=== PATIENT | female | born 1995 | race Caucasian/White ===

== ENCOUNTER 2022-03-22 12:53 | Emergency (ER) | payer BC, SELFPAY ==
[2022-03-22 13:07] VITALS: BP 121/77; PULSE 95; RESP 18; TEMP 37.3; O2SAT 98
--- NOTE | 2022-03-22 13:21 | ED.EAR ---
HPI - Ear Problem General Chief complaint: Ear Stated complaint: lt ear pain Time Seen by Provider: 03/22/22 13:15 Source: patient Mode of arrival: ambulatory Limitations: no limitations History of Present Illness HPI Narrative: Lala is a 27-year-old female patient presenting to the clinic today with complaints of left ear pain x2 days. She denies any fever or chills. She denies any known exposure to anybody with COVID, flu, or strep. She says she gets outer ear infections pretty frequently. Related Data Home Medications Medication Instructions Recorded Confirmed cholecalciferol (vitamin D3) 25 1,000 unit PO DAILY 09/12/19 03/22/22 mcg (1,000 unit) capsule (Vitamin D3) levothyroxine 25 mcg tablet 25 mcg PO DAILY 09/12/19 03/22/22 baclofen 20 mg tablet 40 tablet DAILY 03/22/22 03/22/22 duloxetine 20 mg capsule,delayed 40 cap PO DAILY 03/22/22 03/22/22 release gabapentin 100 mg capsule 100 cap DAILY 03/22/22 03/22/22 hydrochlorothiazide 12.5 mg capsule 12.5 cap DAILY 03/22/22 03/22/22 meclizine 25 mg tablet 25 tablet DIRECTED 03/22/22 03/22/22 metformin 500 mg tablet 500 tablet DAILY 03/22/22 03/22/22 metoprolol tartrate 50 mg tablet 100 tablet DAILY 03/22/22 03/22/22 nabumetone 750 mg tablet 750 tablet BID 03/22/22 03/22/22 norgestrel 0.3 mg-ethinyl 1 tablet DAILY 03/22/22 03/22/22 estradiol 30 mcg tablet (Low-Ogestrel (28)) topiramate 50 mg tablet 50 tablet BID 03/22/22 03/22/22 Allergies Allergy/AdvReac Type Severity Reaction Status Date / Time cefaclor Allergy Mild hives Verified 03/22/22 13:14 Review of Systems Review of Systems: Pertinent positives per HPI. Patient denies any fever, chills, rash, headache, visual changes, dizziness, cough, runny nose, sore throat, shortness of breath, chest pain, palpitations, nausea, vomiting, diarrhea, constipation, abdominal pain, or any urinary issues. PMFSH Comments At the time of my signature, I reviewed and agree with the nursing past medical, surgical, social, and family history. There is no relevant family history pertinent to the patient complaint. Exam Narrative: General: Well-developed, morbidly obese, in no apparent distress Head: Normocephalic, atraumatic Eyes: Pupils equally round and reactive to light bilaterally, EOM intact, sclera and conjunctive clear, no discharge, lids normal Ears: Right TMs intact and clear, right ear canals clear, no drainage, left ear canal swollen, red, with yellow exudate, grossly hearing normal. Tender to palpation over the left tragus and pulling of the left pinna Nose: Nares patent, clear nasal discharge, no inflammation, no sinus tenderness. Mouth: Oropharynx without lesions or masses, good dentition, MMM. Neck: Supple, trachea midline, no enlargement of anterior or posterior cervical nodes, no thyroid masses or goiter palpable. Cardio: Regular rate and rhythm, s1 and s2 normal, no murmur appreciated. Resp: Clear to auscultation bilaterally anteriorly and posteriorly, no rhonchi, rales, wheezing or rubs Course Course Emergency Course: Portions of this record may have been created with voice recognition software. Level of Care: Express Care Visit Vital Signs Vital signs: Vital Signs Temperature 37.3 C 03/22/22 13:07 Pulse Rate 95 03/22/22 13:07 Respiratory Rate 18 03/22/22 13:07 Blood Pressure 121/77 03/22/22 13:07 Pulse Oximetry 98 03/22/22 13:07 Oxygen Delivery Room Air 03/22/22 13:07 Temperature 37.3 C 03/22/22 13:07 Pulse Rate 95 03/22/22 13:07 Respiratory Rate 18 03/22/22 13:07 Blood Pressure 121/77 03/22/22 13:07 Pulse Oximetry 98 03/22/22 13:07 Oxygen Delivery Room Air 03/22/22 13:07 Vital signs reviewed Medical Decision Making MDM Narrative Medical decision making narrative: At the time of visit patient is resting comfortably on the exam table. She has otitis externa to the left ear. Prescription for ofloxacin eardrops was given and se
== END 2022-03-22 13:26 | disposition home or self-care (01) ==
PROVIDERS: Emergency Provider Nurse Practitioner Family; PCP Nurse Practitioner
DX: H60.91 Unspecified otitis externa, right ear (principal); E03.9 Hypothyroidism, unspecified
CPT/HCPCS: 99213; G0463

== ENCOUNTER 2023-07-30 12:51 | Outpatient (CLI) | payer OTHER, SELFPAY ==
--- NOTE | 2023-07-30 13:05 | ECG_ITS ---
Measurements Intervals [place] Rate: 87 P: 3 NC: 140 QRS: 3 QRSD: 99 T: 16 QT: 371 QTc: 448 Interpretive Statements SINUS RHYTHM NORMAL ECG NO PREVIOUS ECG AVAILABLE FOR COMPARISON Electronically Signed On 07-30-2023 18:33:53 CDT by Hugo Montoya M.D.
[2023-07-30 13:23] LABS: Basophils Absolute Auto 0.1 K/mm3 (0.0-0.1); Eosinophils Absolute Auto 0.3 K/mm3 (0-0.3); Eosinophils Percent Auto 4.6 % (0-4.4); Hematocrit 43.7 % (37.0-47.0); Hemoglobin 14.1 g/dL (12.0-15.0); Immature Granulocyte Absolute 0.02 K/mm3 (0.00-0.031); Immature Granulocyte Percent A 0.3 % (0-0.5); Lymphocytes Absolute Auto 1.71 K/mm3 (0.9-3.2); Mean Corpuscular HGB Conc 32.3 g/dl (32-36); Mean Corpuscular Hemoglobin 29.6 pg (26-34); Mean Corpuscular Volume 91.6 fl (80-100); Mean Platelet Volume 10.6 fl (7.4-10.4); Monocytes Absolute Auto 0.4 K/mm3 (0.1-0.6); Monocytes Percent Auto 6.9 % (2.6-8.5); Neutrophils Absolute Auto 3.6 K/mm3 (1.3-6.7); Neutrophils Percent Auto 59.2 % (45.5-73.1); Platelet Count Result 301 k/mm3 (150-375); Red Blood Count 4.77 M/mm3 (4.2-5.4); Red Cell Distribution Width 13.9 % (11.5-14.5); White Blood Count 6.1 K/mm3 (4.5-10.0)
[2023-07-30 13:34] LABS: Anion Gap 6 mmol/L (8-16); Blood Urea Nitrogen 11 mg/dL (7-17); Calcium 8.5 mg/dL (8.4-10.2); Carbon Dioxide 24 mmol/L (22-30); Chloride 107 mmol/L (98-107); Estimated Glomerular Filt Rate > 60; Glucose 139 mg/dL (65-110); Potassium 3.4 mmol/L (3.4-5.0); Sodium 137 mmol/L (137-145)
== END 2023-07-30 12:52 | disposition home or self-care (01) ==
LOC: ANHSURGERY 12:57
PROVIDERS: Anesthesiology; PCP Nurse Practitioner; Visit Provider Obstetrics & Gynecology
DX: Z01.818 Encounter for other preprocedural examination (principal); R10.2 Pelvic and perineal pain; R73.03 Prediabetes; R00.0 Tachycardia, unspecified; Z79.899 Other long term (current) drug therapy
CPT/HCPCS: 36415; 80048; 85025; 86850; 86900; 86901; 93005

== ENCOUNTER 2023-08-08 00:21 | Day surgery (SDC) | payer OTHER, SELFPAY ==
[2023-07-29 14:33] VITALS: BMI 48.6
--- NOTE | 2023-07-29 14:52 | PC.NURSE ---
Report to the Outpatient Waiting Room, entrance under the green pavilion located off [facility], at time 7:30 on date 08/08/23. Planned Procedure Time: 9:30. Time changes happen often and if your time is changed the preop area will call you the afternoon before. - You and your visitor will be asked to self-screen and do not enter if you have any COVID symptoms. - A mask is optional within the hospital at this time. Patients may have clear liquids (water, carbonated beverages, clear teas, apple juice) until 3 hours prior to surgery (6:30) with a maximum of 20 ounces. - No food from midnight until time of surgery Take the following medications with a SIP of water the morning of surgery: BACLOFEN, DULOXETINE, GABAPENTIN, LEVOTHYROXINE, METOPROLOL, TOPIRAMATE, TRAMADOL IF NEEDED DO NOT STOP ANY OF YOUR OTHER PRESCRIPTION MEDICATIONS PRIOR TO SURGERY ?EXCEPT THE FOLLOWING Medications to discontinue per physician: VITAMINS Date to take last dose: 08/04/23 Please no make-up, nail mongolian, hairspray, perfume, deodorant, or body powder the day of surgery. No jewelry (including any body piercings) or valuables the day of surgery, leave them at home. Please take a shower or bath the night before, or the morning of, surgery with an antibacterial soap. Wear comfortable, loose fitting clothing. - Jewelry must be removed prior to entering the operating room. Rings and piercings that are not removed may be cut off. - The hospital will not accept responsibility for valuables. - Please leave all valuables, including medications, at home the day of surgery. If you are going home after surgery, a licensed transport driver must drive you home. - NO public transportation without another adult if you receive anesthesia. - We recommend that an adult stay with you for 24 hours following discharge. - We also recommend that you do not drive, make important decision, drink alcoholic beverages, or take any drugs that were not prescribed by your health care provider for at least 24 hours after your discharge time. Follow any additional instructions given to you from your surgeon. If you or anyone in your household have experienced Covid symptoms in the past week, please notify your surgeon or the nurse liaison at the phone number below for possible testing. Telephone instructions given to PT - WINSTON WU and asked if any additional questions and then verbalized understanding. Patient advised to call surgeon office or pre surgery nurse liaison [phone] if any additional questions.
--- NOTE | 2023-08-06 12:34 | PM.IMHP ---
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 She declines any attempts at therapy. She has a large fibroid at the fundus of the uterus and will undergo hysterectomy and bilateral salpingectomy. Risks and benefits reviewed including not exclusive of , aspiration pneumonia, bleeding, transfusion, perforation injury to bowel, bladder, ureters, or other internal organs with need for open laparotomy. She received the A[employer] handout entitled hysterectomy as well as Valerie handout. She had all questions answered. She asked to proceed [facility] Social History Social History Smoking status: Never smoker Alcohol intake: current Alcohol use details: VERY RARE Substance use: never Substance use type: does not use Living arrangements: with family Spiritual care concerns: No Meds Home Medications and Allergies Home Medications Medication Instructions Recorded Confirmed Type cholecalciferol (vitamin D3) 25 1,000 unit PO DAILY 09/12/19 07/29/23 History mcg (1,000 unit) capsule (Vitamin D3) levothyroxine 25 mcg tablet 25 mcg PO DAILY 09/12/19 07/29/23 History baclofen 20 mg tablet 20 mg PO BID 03/22/22 07/29/23 History gabapentin 100 mg capsule 100 mg PO TID 03/22/22 07/29/23 History hydrochlorothiazide 12.5 mg capsule 12.5 mg PO DAILY 03/22/22 07/29/23 History meclizine 25 mg tablet 25 mg PO TID PRN Vertigo 03/22/22 07/29/23 History metformin 500 mg tablet 500 mg PO DAILY 03/22/22 07/29/23 History metoprolol tartrate 50 mg tablet 50 mg PO DAILY 03/22/22 07/29/23 History nabumetone 750 mg tablet 750 mg PO BID PRN Pain 03/22/22 07/29/23 History duloxetine 60 mg capsule,delayed 60 mg PO DAILY 07/29/23 07/29/23 History release topiramate 100 mg tablet 100 mg PO DAILY 07/29/23 07/29/23 History tramadol 50 mg tablet 50 mg PO BID PRN Pain 07/29/23 07/29/23 History Allergies Allergy/AdvReac Type Severity Reaction Status Date / Time cefaclor Allergy Mild hives Verified 07/29/23 14:34 Exam Const: General: cooperative, healthy appearing and comfortable Orientation/consciousness: oriented to person, oriented to place and oriented to time Resp: Effort & Inspection: normal respiratory effort Cardio: Rate: regular rate Rhythm: regular rhythm Heart sounds: S1 normal heart sound present and S2 normal heart sound present GI: Inspection: normal to inspection : External Female Exam: normal external appearance Speculum Exam - Vagina: normal appearance of the vagina Speculum Exam - Cervix: normal appearance of the cervix Bimanual exam- vagina & uterus: enlarged Bimanual Exam- Adnexa, other: normal adnexae Assessment and Plan Assessment and plan (1) Enlarged uterus: Code(s): N85.2 - Hypertrophy of uterus Status: Acute (2) Pelvic pain: Code(s): R10.2 - Pelvic and perineal pain Status: Acute (3) Excessive bleeding: Code(s): R58 - Hemorrhage, not elsewhere classified Status: Acute Plan Robotic total vaginal hysterectomy and bilateral salpingectomy
[2023-08-08] VITALS (9 sets, daily range): BP systolic 95–124; BP diastolic 48–91; PULSE 62–81; RESP 14–22; TEMP 36.3–36.9; O2SAT 92–99; BMI 45.8
--- NOTE | 2023-08-08 06:15 | WPDHPUPDATE1 ---
History and Physical Update Update Date/Time: 08/08/23 06:15 History and Physical has been reviewed, including an updated exam of the patient. There are NO changes in the patient's condition. Risks, benefits, and alternatives have been discussed and questions answered. Patient agrees to proceed with procedure.
--- NOTE | 2023-08-08 07:10 | WPDANESEPPF ---
Anes - Initial Pre Proc Eval Procedure: Operation Date: 08/08/23 07:30 Proposed Procedures p Robotic Assisted Total Vaginal Hysterectomy with Bilateral Salpingectomy - Andrew Giraldo MD Date/Time: 08/08/23 07:10 Surgeon: Andrew Giraldo MD Pre Op Diagnosis: Pelvic Pain, Fibroid, Irg Bleeding Patient Data Age: 28 Gender: F Height: 1.6 m Weight: 117.4 kg Last Vital Signs Temp 98.5 F 08/08/23 06:48 Pulse 78 08/08/23 06:48 Resp 16 08/08/23 06:48 BP 124/91 H 08/08/23 06:48 Pulse Ox 99 08/08/23 06:48 O2 Del Method Room Air 08/08/23 06:48 Allergies Allergy/AdvReac Type Severity Reaction Status Date / Time cefaclor Allergy Mild hives Verified 08/08/23 06:56 Home Medications Medication Instructions Recorded Confirmed Type cholecalciferol (vitamin D3) 25 1,000 unit PO DAILY 09/12/19 07/29/23 History mcg (1,000 unit) capsule (Vitamin D3) levothyroxine 25 mcg tablet 25 mcg PO DAILY 09/12/19 07/29/23 History baclofen 20 mg tablet 20 mg PO BID 03/22/22 07/29/23 History gabapentin 100 mg capsule 100 mg PO TID 03/22/22 07/29/23 History hydrochlorothiazide 12.5 mg capsule 12.5 mg PO DAILY 03/22/22 07/29/23 History meclizine 25 mg tablet 25 mg PO TID PRN Vertigo 03/22/22 07/29/23 History metformin 500 mg tablet 500 mg PO DAILY 03/22/22 07/29/23 History metoprolol tartrate 50 mg tablet 50 mg PO DAILY 03/22/22 07/29/23 History nabumetone 750 mg tablet 750 mg PO BID PRN Pain 03/22/22 07/29/23 History duloxetine 60 mg capsule,delayed 60 mg PO DAILY 07/29/23 07/29/23 History release topiramate 100 mg tablet 100 mg PO DAILY 07/29/23 07/29/23 History tramadol 50 mg tablet 50 mg PO BID PRN Pain 07/29/23 07/29/23 History hydrocodone 5 mg-acetaminophen 325 1 tablet PO Q4H PRN pain #30 tabs 08/08/23 Rx mg tablet Patient hx anesthesia problems: none Family hx anesthesia problems: none Results Review: All pre-operative results and documents have been reviewed as part of the pre-operative evaluation. [facility] Social History Social History Smoking status: Never smoker Alcohol intake: current Alcohol use details: VERY RARE Substance use: never Substance use type: does not use Living arrangements: with family Spiritual care concerns: No Anes - Eval Final PreProcedure Day of Procedure 08/08/23 07:10 Patient weight: morbidly obese Heart: regular rate and rhythm Lungs: clear to auscultation Airway: Mallampati scale class II Neurological: alert and oriented Last oral intake: >/= 8 hours ASA classification: III Emergent: no Anesthetic plan: proceed Anesthesia type and monitoring: general ETT and standard monitoring Results Review: All pre-operative results and documents have been reviewed as part of the pre-operative evaluation. Informed Consent: The patient's anesthetic plan and its attendant risks and benefits were discussed with the patient/family/POA. Questions were solicited and answers provided to the satisfaction of the patient/family/POA.
[2023-08-08] MEDS: LACTATED RINGERS 1,000 ML 30 ML IV CONT ×2 (07:20→09:09)
[2023-08-08] MEDS: ACETAMINOPHEN 500 MG TABLET 1000 MG PO (07:30)
[2023-08-08] MEDS: KETOROLAC 15 MG/ML VIAL (*BKC) IV PUSH (07:30)
[2023-08-08 07:35] LABS: Glucose Point of Care 89 mg/dl (65-105)
[2023-08-08] MEDS: GENTAMICIN SULFATE INJ 390 MG in DEXTROSE 5% 100 ML 99.65 MG IVPB (07:37)
[2023-08-08] MEDS: CLINDAMYCIN 900 MG/D5W 50 ML 900 MG/50 ML PIGGYBACK 50 MG IVPB (07:37)
--- NOTE | 2023-08-08 08:59 | W.PM.PROC2 ---
Procedure Note - Detailed Date of Procedure 08/08/23 Pre-op Diagnosis Pelvic Pain, Fibroid, Irg Bleeding Post-op Diagnosis Same Procedure Performed Robotic total vaginal hysterectomy bilateral salpingectomy Surgeon Andrew Giraldo MD Anesthesia General Indications This is a 28-year-old multiparous female with a large fibroid uterus pelvic pain bleeding dyspareunia. Findings Markedly enlarged uterus. Normal-appearing ovaries and tubes Description of Procedure Patient was prepped draped in the normal sterile fashion placed in the dorsal lithotomy position. Under excellent general trach anesthesia weighted speculum placed in posterior fornix vagina. Anterior lip of the cervix grasped with a single-tooth tenaculum. The uterus sounded to 11cm. Serial dilatation fragmented docked performed followed by passage of the 10. WAYNE and the 3. Cold cup. Next the 16 Prydeinig catheter was placed in the weighted speculum and the single-tooth removed. Gloves were changed. Supraumbilical incision made the Veress needle passed in the abdomen. Abdomen filled with CO2 gas [id number]. 8mm trocar advanced in the abdomen. Downside visualized no injury seen. Gas reattached the patient placed in Trendelenburg. Right and left lateral quadrant incisions were made and the 8mm trocars advanced under direct visualization the right and left lateral sites. A right upper quadrant incision made the 8mm trocar advanced under direct visualization assuring no injury. The robot was docked. Attention was turned to the console. The uterus was noted be large and irregular consistent multiple fibroids. The left round ligament was grasped, burned, cut. Anterior bladder flap was formed by sharply dissecting the peritoneum and reflecting the bladder caudally away from the cervix uterus to the opposite round ligament which was clamped, burned, cut. Next the left fallopian tube was sharply dissected away from the ovarian complex and left attached to the uterine origin. This was repeated on the contralateral side to the right fallopian tube. The utero-ovarian ligament on the left was skeletonized clamping burning cutting and conserving the left ovary and. This was brought to the level of previously cut round ligament. In like fashion on the right, the utero-ovarian ligament was clamped, burned, cut and brought to the level of previously cut round ligament. There was a markedly irregular fibroid uterus present and the peritoneum was incised and pushed away in order to be able to see the cardinal and broad ligaments on the left. These were serially skeletonized clamping burning cutting and hugging the uterus and fibroid until the large uterine vessels could be seen on the left. These were individually clamped, burned, cut. In like fashion the cardinal broad ligaments on the right were serially skeletonized clamping burning cutting and bring this down to the level of the uterine vessels on the right. These were then individually clamped, burned, cut. Excellent blanching was noted. And a colpotomy incision made. The uterus was then placed into 4 pieces as it was markedly enlarged and brought serially through the vagina with the fallopian tubes. Blood loss was estimated 25cc. The vagina was closed with continuous running 0V lock from lateral edge to lateral edge back to the midline. Irrigation undertaken until clear blood loss estimated 25cc. The robot was undocked. The gas removed from the abdomen. The incisions closed with 4 Monocryl and glue after the gas had been removed from the abdomen. The patient was awakened in the instruments removed from the vagina patient all sponge, needle, instrument counts were correct. There were no immediate complications noted Estimated Blood Loss 25 Drains No Packing No Pathology Yes Complications No immediate complications Condition Stable Disposition PACU
--- NOTE | 2023-08-08 09:04 | PM.DS ---
DS: Admitting Diagnosis Discharge Date 08/09/2023 Admitting Diagnosis Enlarged uterus/pelvic pain/excessive bleeding/fibroids DS: Discharge Diagnosis Discharge Diagnosis (1) Excessive bleeding: Code(s): R58 - Hemorrhage, not elsewhere classified Status: Acute (2) Pelvic pain: Code(s): R10.2 - Pelvic and perineal pain Status: Acute (3) Enlarged uterus: Code(s): N85.2 - Hypertrophy of uterus Status: Acute DS: Summary Hospital Course Reason for hospitalization: Patient was admitted for robotic total vaginectomy bilateral salpingectomy on 08/08/2023. Hospital Course: Patient underwent an unremarkable robotic total vaginectomy and bilateral salpingectomy. Her hospital course was unremarkable. For 24hour stay she remained afebrile. She was up, voiding without difficulty, eating regular diet, ambulating, and generally without. Time Spent with Patient Time attestation: Total time spent providing and/or coordinating discharge services: Exam Const: General: cooperative, healthy appearing and comfortable Orientation/consciousness: oriented to person, oriented to place and oriented to time HENMT: Head: normal to inspection Resp: Effort & Inspection: normal respiratory effort Cardio: Rate: regular rate Rhythm: regular rhythm Heart sounds: S1 normal heart sound present and S2 normal heart sound present GI: Inspection: normal to inspection and incision (Wounds are clean dry intact) DS: Data Data Completed and Pending Pending studies at discharge: Pending at discharge 08/08/23 08:45 Surgical [PTH] Routine Labs on day of discharge: Labs from last 24 hours 08/08/23 07:25 POC Capillary Glucose 89 Discharge Plan Discharge Patient Disposition: Home, Self-Care Discharge Instructions: Nothing in the vagina for 6 weeks. Call or return if temperature above 100.4? F, increased abdominal pain, increased vaginal bleeding or any new problems. Patient Instructions: Laparoscopic Hysterectomy (DC) Stand Alone Forms: General Discharge Instructions Follow-up/Referrals: Andrew Rush MD [Physician] - 2 Weeks Discharge Medications: New hydrocodone-acetaminophen 5-325 mg tablet 1 tablet PO Q4H PRN (Reason: pain) Qty: 30 0RF Continued levothyroxine 25 mcg Tablet 25 mcg PO DAILY cholecalciferol (vitamin D3) [Vitamin D3] 1,000 unit Capsule 1,000 unit PO DAILY metformin 500 mg tablet 500 mg PO DAILY nabumetone 750 mg tablet 750 mg PO BID PRN (Reason: Pain) baclofen 20 mg tablet 20 mg PO BID meclizine 25 mg tablet 25 mg PO TID PRN (Reason: Vertigo) metoprolol tartrate 50 mg tablet 50 mg PO DAILY hydrochlorothiazide 12.5 mg capsule 12.5 mg PO DAILY gabapentin 100 mg capsule 100 mg PO TID tramadol 50 mg Tablet 50 mg PO BID PRN (Reason: Pain) topiramate 100 mg Tablet 100 mg PO DAILY duloxetine 60 mg Capsule,Delayed Release(Dr/Ec) 60 mg PO DAILY
[2023-08-08 09:30] LABS: Glucose Point of Care 158 mg/dl (65-105)
--- NOTE | 2023-08-08 10:30 | PC.NURSE ---
This patient, Lala Rodarteblancakwasi, was received from PACU on 08/08/23 at 1030. Patient/family oriented to unit policies and routines
[2023-08-08] MEDS: KETOROLAC 30 MG/ML VIAL (*BKC) IV PUSH (11:01)
[2023-08-08] MEDS: DEXTROSE 5%/LACTATED RINGERS 1,000 ML 125 ML IV CONT (11:08)
[2023-08-08] MEDS: HYDROcodone/acetaminophen (*CRX) 5-325 MG TABLET 1 TAB PO ×3 (15:21→23:43)
[2023-08-08] MEDS: DOCUSATE SODIUM 100 MG CAPSULE PO (15:21)
[2023-08-08] MEDS: SIMETHICONE 80 MG TAB.CHEW PO ×3 (15:22→23:42)
[2023-08-08] MEDS: IBUPROFEN 600 MG TABLET PO (23:42)
[2023-08-09] VITALS: BP 115/81; PULSE 82; RESP 16; TEMP 37.1; O2SAT 99
[2023-08-09 04:30] VITALS: BP 94/53; PULSE 86; RESP 16; TEMP 36.6; O2SAT 98
[2023-08-09 04:51] LABS: Basophils Percent Auto 0.2 % (0.2-1.2); Eosinophils Percent Auto 0.1 % (0-4.4); Hematocrit 36.5 % (37.0-47.0); Hemoglobin 12.2 g/dL (12.0-15.0); Immature Granulocyte Absolute 0.04 K/mm3 (0.00-0.031); Immature Granulocyte Percent A 0.3 % (0-0.5); Lymphocytes Absolute Auto 1.71 K/mm3 (0.9-3.2); Lymphocytes Percent Auto 13.6 % (18.3-44.2); Mean Corpuscular HGB Conc 33.4 g/dl (32-36); Mean Corpuscular Hemoglobin 30.4 pg (26-34); Mean Platelet Volume 10.8 fl (7.4-10.4); Monocytes Absolute Auto 1.2 K/mm3 (0.1-0.6); Monocytes Percent Auto 9.2 % (2.6-8.5); Neutrophils Absolute Auto 9.6 K/mm3 (1.3-6.7); Neutrophils Percent Auto 76.6 % (45.5-73.1); Platelet Count Result 232 k/mm3 (150-375); Red Blood Count 4.01 M/mm3 (4.2-5.4); Red Cell Distribution Width 13.6 % (11.5-14.5); White Blood Count 12.6 K/mm3 (4.5-10.0)
[2023-08-09 08:30] VITALS: BP 100/50; PULSE 84; RESP 16; TEMP 36.8; O2SAT 100
[2023-08-09] MEDS: ENOXAPARIN 40 MG/0.4 ML SYRINGE SUB-Q (08:44)
[2023-08-09] MEDS: HYDROcodone/acetaminophen (*CRX) 5-325 MG TABLET 1 TAB PO (08:44)
--- NOTE | 2023-08-09 08:57 | PM.GYNPNOP ---
[employer] - A/P Assessment and plan (1) Excessive bleeding: Code(s): R58 - Hemorrhage, not elsewhere classified Status: Acute Assessment and Plan: A: POD#1, doing well. P: Home to f/u 2 weeks. (2) Pelvic pain: Code(s): R10.2 - Pelvic and perineal pain Status: Acute (3) Enlarged uterus: Code(s): N85.2 - Hypertrophy of uterus Status: Acute Postoperative Procedures: Procedures Operation Date: 08/08/23 07:30 Actual Procedure Side Surgeon p Robotic Assisted Total Vaginal Hysterectomy with Bilateral Salpingectomy Bilateral Andrew Giraldo MD Time Spent With Patient Time with patient: less than 15 minutes [employer]- PN:Subj Post-Op Subjective Date/time seen: 08/09/23 08:57 Interval history: Pain OK. Tolerating diet. Voiding. Would like to go home. Exam Narrative: AVSS I/O OK ABD soft, nontender. Incisions c/d/i. EXT nontender [employer] - PN: Obj Data Vital Signs Vital Signs: Vital Signs - 24 hr 08/08/23 09:09 08/08/23 09:25 08/08/23 09:40 Temperature 36.3 C L Pulse Rate 77 68 65 Respiratory Rate 14 22 H 22 H Blood Pressure 105/67 95/69 L 115/69 Pulse Oximetry 97 95 92 Oxygen Delivery Simple Face Mask Simple Face Mask Nasal Cannula Oxygen Flow Rate 15 10 4 08/08/23 09:55 08/08/23 10:10 08/08/23 10:35 Temperature 36.6 C Pulse Rate 63 67 62 Respiratory Rate 20 18 16 Blood Pressure 107/76 105/73 95/61 L Pulse Oximetry 96 96 97 Oxygen Delivery Nasal Cannula Nasal Cannula Oxygen Flow Rate 3 2 08/08/23 16:30 08/08/23 19:40 08/08/23 19:40 Temperature 36.8 C 36.6 C Pulse Rate 78 81 Respiratory Rate 16 18 Blood Pressure 98/48 L 114/81 Pulse Oximetry 97 96 Oxygen Delivery Room Air Oxygen Flow Rate 08/09/23 00:00 08/09/23 04:30 Temperature 37.1 C 36.6 C Pulse Rate 82 86 Respiratory Rate 16 16 Blood Pressure 115/81 94/53 L Pulse Oximetry 99 98 Oxygen Delivery Oxygen Flow Rate Intake/Output Intake/Output: Intake & Output 1008/07/23 08/08/23 08/09/23 23:59 23:59 23:59 23:59 Intake Total 1080 Output Total 60 400 Balance 1020 -400 Meds/Results Medications: Active Medications Generic Name Dose Route Start Last Admin Trade Name Freq PRN Reason Stop Dose Admin Hydrocodone Bitart/Acetaminophen 1 tab 08/08/23 10:23 08/09/23 08:44 Hydrocodone/Acetaminophen (*Crx) 5-325 Mg Tablet PO 1 tab Q3H PRN Administration Pain Rated 5 or Less Hydrocodone Bitart/Acetaminophen 1 tab 08/08/23 10:23 Hydrocodone/Acetaminophen (*Crx) 10-325 Mg Tablet PO Q3H PRN Pain Rated 6 or Greater Docusate Sodium 100 mg 08/08/23 10:23 08/08/23 18:27 Docusate Sodium 100 Mg Capsule PO Not Given BID RICARDO Enoxaparin Sodium 40 mg 08/08/23 10:23 08/09/23 08:44 Enoxaparin 40 Mg/0.4 Ml Syringe SUB-Q 40 mg DAILY RICARDO Administration Ibuprofen 600 mg 08/08/23 10:23 08/08/23 23:42 Ibuprofen 600 Mg Tablet PO 600 mg Q6H PRN Administration Cramping Ketorolac Tromethamine 30 mg 08/08/23 10:23 08/08/23 11:01 Ketorolac 30 Mg/Ml Vial (*Bkc) IV PUSH 08/13/23 10:22 30 mg Q6H PRN Administration Pain Rated 4-6 Naloxone HCl 0.1 mg 08/08/23 10: Naloxone Hcl 0.4 Mg/Ml Vial IV PUSH Q2M PRN Respiratory rate less than 10 Ondansetron HCl 4 mg 08/08/23 10:23 Ondansetron Inj 4 Mg/2 Ml Vial IV PUSH Q6H PRN Nausea And Vomiting Simethicone 80 mg 08/08/23 10:23 08/08/23 23:42 Simethicone 80 Mg Tab.Chew PO 80 mg Q2H PRN Administration Gas Labs 08/09/23 04:40 Labs: Laboratory Results - last 24 hr 08/08/23 08/09/23 09:12 04:40 WBC 12.6 H RBC 4.01 L Hgb 12.2 Hct 36.5 L MCV 91.0 MCH 30.4 MCHC 33.4 RDW 13.6 Plt Count 232 MPV 10.8 H Immature Gran % (Auto) 0.3 Neut % (Auto) 76.6 H Lymph % (Auto) 13.6 L [place] % (Auto) 9.2 H Eos % (Auto) 0.1 Baso % (Aut
--- NOTE | 2023-08-09 08:58 | P.DS_ITS ---
DS: Admitting Diagnosis Discharge Date 08/09/23 Admitting Diagnosis Pain, bleeding, enlarged uterus DS: Discharge Diagnosis Discharge Diagnosis (1) Excessive bleeding: Code(s): R58 - Hemorrhage, not elsewhere classified Status: Acute (2) Pelvic pain: Code(s): R10.2 - Pelvic and perineal pain Status: Acute (3) Enlarged uterus: Code(s): N85.2 - Hypertrophy of uterus Status: Acute DS: Summary Hospital Course Hospital Course: She was admitted on the date of scheduled surgery. See op note for details. She did well and was able to go home on POD1. Time Spent with Patient Time attestation: Total time spent providing and/or coordinating discharge services: DS: Data Data Completed and Pending Pending studies at discharge: Pending at discharge 08/08/23 08:45 Surgical [PTH] Routine Labs on day of discharge: Labs from last 24 hours 08/09/23 08/08/23 04:40 09:12 WBC 12.6 H RBC 4.01 L Hgb 12.2 Hct 36.5 L MCV 91.0 MCH 30.4 MCHC 33.4 RDW 13.6 Plt Count 232 MPV 10.8 H Immature Gran % (Auto) 0.3 Neut % (Auto) 76.6 H Lymph % (Auto) 13.6 L [place] % (Auto) 9.2 H Eos % (Auto) 0.1 Baso % (Auto) 0.2 Lymph # (Auto) 1.71 [place] # (Auto) 1.2 H Eos # (Auto) 0.0 Baso # (Auto) 0.0 Abs Immat Gran (auto) 0.04 H Absolute Neuts (auto) 9.6 H Absolute Nucleated RBC 0.0 Nucleated RBC % 0.0 POC Capillary Glucose 158 H Discharge Plan Discharge Patient Disposition: Home, Self-Care Discharge Instructions: Nothing in the vagina for 6 weeks. Call or return if temperature above 100.4? F, increased abdominal pain, increased vaginal bleeding or any new problems. Stand Alone Forms: General Discharge Instructions Follow-up/Referrals: Andrew Rush MD [Physician] - 2 Weeks Discharge Medications: New hydrocodone-acetaminophen 5-325 mg tablet 1 tablet PO Q4H PRN (Reason: pain) Qty: 30 0RF Continued levothyroxine 25 mcg Tablet 25 mcg PO DAILY cholecalciferol (vitamin D3) [Vitamin D3] 1,000 unit Capsule 1,000 unit PO DAILY metformin 500 mg tablet 500 mg PO DAILY nabumetone 750 mg tablet 750 mg PO BID PRN (Reason: Pain) baclofen 20 mg tablet 20 mg PO BID meclizine 25 mg tablet 25 mg PO TID PRN (Reason: Vertigo) metoprolol tartrate 50 mg tablet 50 mg PO DAILY hydrochlorothiazide 12.5 mg capsule 12.5 mg PO DAILY gabapentin 100 mg capsule 100 mg PO TID tramadol 50 mg Tablet 50 mg PO BID PRN (Reason: Pain) topiramate 100 mg Tablet 100 mg PO DAILY duloxetine 60 mg Capsule,Delayed Release(Dr/Ec) 60 mg PO DAILY
== END 2023-08-09 10:53 | disposition home or self-care (01) ==
LOC: ANHSURGERY 06:42 → ANHOB2 10:45
PROVIDERS: PCP Nurse Practitioner; Visit Provider Obstetrics & Gynecology
PROC: (CPT 58554; principal; 2023-08-08 07:30)
DX: D25.1 Intramural leiomyoma of uterus (principal); N93.9 Abnormal uterine and vaginal bleeding, unspecified; R10.9 Unspecified abdominal pain; Z79.84 Long term (current) use of oral hypoglycemic drugs; E66.01 Morbid (severe) obesity due to excess calories; Z68.42 Body mass index [BMI] 45.0-49.9, adult; R87.810 Cervical high risk human papillomavirus (HPV) DNA test positive
CPT/HCPCS: 58554; S2900; 36415; 82948; 85025; 88307; 99199; A9270; J0330; J1100; J1170; J1580; J1650; J1885; J2250; J2310; J2371; J2405; J2704; J3010; J7030; J7120; J7121

== ENCOUNTER 2024-06-17 15:42 | Emergency (ER) | payer OTHER, SELFPAY ==
[2024-06-17 15:52] VITALS: BP 136/76; PULSE 98; RESP 18; TEMP 36.2; O2SAT 98
--- NOTE | 2024-06-17 16:35 | ED.URI ---
HPI - URI/Sore Throat General Chief Complaint: Upper Respiratory Infection Stated Complaint: sore throat / coughing Time Seen by Provider: 06/17/24 16:36 History of Present Illness HPI Narrative: 29 y/o female presented for c/o sore throat, headache, cough and chest congestion, and nasal congestion and drainage. Onset 9 days. States symptoms improved for 3-4 days but returned. Denies sob, wheezing, n/v/d/f/c. Taking Sudafed. Related Data Home Medications Medication Instructions Recorded Confirmed cholecalciferol (vitamin D3) 25 1,000 unit PO DAILY 09/12/19 08/08/23 mcg (1,000 unit) capsule (Vitamin D3) levothyroxine 25 mcg tablet 25 mcg PO DAILY 09/12/19 08/08/23 gabapentin 100 mg capsule 100 mg PO TID 03/22/22 08/08/23 hydrochlorothiazide 12.5 mg capsule 12.5 mg PO DAILY 03/22/22 07/29/23 meclizine 25 mg tablet 25 mg PO TID PRN Vertigo 03/22/22 07/29/23 metformin 500 mg tablet 500 mg PO DAILY 03/22/22 07/29/23 metoprolol tartrate 50 mg tablet 50 mg PO DAILY 03/22/22 08/08/23 duloxetine 60 mg capsule,delayed 60 mg PO DAILY 07/29/23 08/08/23 release topiramate 100 mg tablet 100 mg PO DAILY 07/29/23 08/08/23 tramadol 50 mg tablet 50 mg PO BID PRN Pain 07/29/23 07/29/23 tizanidine 2 mg tablet mg 06/17/24 Allergies Allergy/AdvReac Type Severity Reaction Status Date / Time cefaclor Allergy Mild hives Verified 06/17/24 16:20 Review of Systems Review of Systems: CONSTITUTIONAL: Denies body aches, fever, chills, or sweats. EYES: Denies visual changes, redness, or discharge. ENT: Reports rhinorrhea, congestion, sore throat CARDIOVASCULAR: Denies chest pain, palpitations, or edema. RESPIRATORY: Reports cough Denies dyspnea. GASTROINTESTINAL: Denies abdominal pain, nausea, vomiting, or diarrhea. SKIN: Denies rash, itching, or wounds. MUSCULOSKELETAL: Denies back pain, joint pain NEUROLOGIC: Reports headache PMFSH Social History Social History Smoking status: Never smoker Alcohol intake: current Alcohol use details: VERY RARE Substance use: never Substance use type: does not use Living arrangements: with family Spiritual care concerns: No Exam Narrative: GENERAL: Mildly Ill-appearing, no acute distress. EYES: conjunctivae clear ENT: Mucous membranes moist. TMs pearly her with normal light reflex bilaterally; no tragal tenderness. Oropharynx mildly erythematous without lesions. Tonsils enlarged 2+ and without exudate. No drooling, no hoarseness, no trismus, uvula midline. No tripod positioning, hot potato voice, or soft palate swelling. NECK: Supple. No lymphadenopathy CHEST: Clear to auscultation, breath sounds equal. No respiratory distress, speaks in full sentences. HEART: Regular rate and rhythm. No murmur heard. SKIN: Warm, dry, no rash. NEURO: Alert and oriented x3. Course Course Emergency Course: Patient is aware of diagnosis, understands and agrees to treatment plan. Anticipatory guidance given. Patient agrees to follow-up as directed and is aware of reasons to seek care at the emergency department. Portions of this record may have been created with voice recognition software Level of Care: Express Care Visit Vital Signs Vital signs: Vital Signs Temperature 97.2 F L 06/17/24 15:52 Pulse Rate 98 06/17/24 15:52 Respiratory Rate 18 06/17/24 15:52 Blood Pressure 136/76 06/17/24 15:52 Pulse Oximetry 98 06/17/24 15:52 Oxygen Delivery Room Air 06/17/24 15:52 Temperature 97.2 F L 06/17/24 15:52 Pulse Rate 98 06/17/24 15:52 Respiratory Rate 18 06/17/24 15:52 Blood Pressure 136/76 06/17/24 15:52 Pulse Oximetry 98 06/17/24 15:52 Oxygen Delivery Room Air 06/17/24 15:52 MDM - URI/Sore Throat MDM Narrative Medical decision making narrative: Results of COVID, flu, and strep reviewed with pt. Advise supportive treatments. Patient is appropriate for outpatient treat
[2024-06-17 16:49] LABS: EDINFLUASCREEN Negative; EDINFLUBSCREEN Negative
[2024-06-17 16:50] LABS: EDSTREPNEGPOS1 Negative
== END 2024-06-17 16:56 | disposition home or self-care (01) ==
PROVIDERS: Emergency Provider Nurse Practitioner Family; PCP Nurse Practitioner
DX: J32.9 Chronic sinusitis, unspecified (principal); Z20.822 Contact with and (suspected) exposure to COVID-19
CPT/HCPCS: 87081; 87426; 87804; 87880; 99213; G0463

== ENCOUNTER 2024-07-27 14:24 | Emergency (ER) | payer OTHER, SELFPAY ==
[2024-07-27 14:29] VITALS: BP 131/81; PULSE 77; RESP 18; TEMP 36.7; O2SAT 99
--- NOTE | 2024-07-27 15:49 | ED.GENADULT ---
HPI - General Adult General Chief complaint: Headache Stated complaint: MIGRAINE Time Seen by Provider: 07/27/24 15:36 History of Present Illness HPI narrative: 29-year-old female history of migraines presenting to the emergency department for evaluation for migraine. Patient states the migraine started as her typical migraine but did not respond to her migraine medications. patient states she does have frequent migraines but once every few months she has a migraine this severe. Patient states the migraine started as a typical migraine but just did not respond to medications. Patient denies any characteristics her symptoms that are not typical for her classic migraine. Related Data Home Medications Medication Instructions Recorded Confirmed cholecalciferol (vitamin D3) 25 1,000 unit PO DAILY 09/12/19 08/08/23 mcg (1,000 unit) capsule (Vitamin D3) levothyroxine 25 mcg tablet 25 mcg PO DAILY 09/12/19 08/08/23 gabapentin 100 mg capsule 100 mg PO TID 03/22/22 08/08/23 hydrochlorothiazide 12.5 mg capsule 12.5 mg PO DAILY 03/22/22 07/29/23 meclizine 25 mg tablet 25 mg PO TID PRN Vertigo 03/22/22 07/29/23 metformin 500 mg tablet 500 mg PO DAILY 03/22/22 07/29/23 metoprolol tartrate 50 mg tablet 50 mg PO DAILY 03/22/22 08/08/23 duloxetine 60 mg capsule,delayed 60 mg PO DAILY 07/29/23 08/08/23 release topiramate 100 mg tablet 100 mg PO DAILY 07/29/23 08/08/23 tramadol 50 mg tablet 50 mg PO BID PRN Pain 07/29/23 07/29/23 tizanidine 2 mg tablet mg 06/17/24 Allergies Allergy/AdvReac Type Severity Reaction Status Date / Time cefaclor Allergy Mild hives Verified 06/17/24 16:20 Review of Systems Review of Systems: All systems reviewed & are unremarkable except as noted in HPI and below PMFSH Social History Social History Smoking status: Never smoker Alcohol intake: current Alcohol use details: VERY RARE Substance use: never Substance use type: does not use Living arrangements: with family Spiritual care concerns: No Exam Narrative: APPEARANCE: Uncomfortable appearing HEAD: normocephalic, atraumatic. EYES: PERRLA/EOMI, conjunctivae clear. NOSE: Normal no drainage EARS:TMS clear with good light reflex. THROAT: Pharynx clear, no exudate. NECK: Supple. No adenopathy, no masses. RESPIRATORY: Airway patent, respirations nonlabored. Clear to auscultation bilaterally, no rales, rhonchi, wheezing. CARDIOVASCULAR: Regular rate and rhythm without murmurs rubs or gallops. ABDOMINAL: Soft, nontender, nondistended, normal bowel sounds MUSCULOSKELETAL: Moves all extremities. Strength/ROM intact, No edema, No calf tenderness. NEURO: Alert. Cranial nerves II through XII intact. Good gait. Good coordination SKIN: Warm, dry. Normal Color Course Vital Signs Vital signs: Vital Signs Temperature 98.1 F 07/27/24 14:29 Pulse Rate 77 07/27/24 14:29 Respiratory Rate 18 07/27/24 14:29 Blood Pressure 131/81 07/27/24 14:29 Pulse Oximetry 99 07/27/24 14:29 Oxygen Delivery Room Air 07/27/24 14:29 Temperature 98.1 F 07/27/24 14:29 Pulse Rate 78 07/27/24 17:15 Respiratory Rate 16 07/27/24 17:15 Blood Pressure 120/77 07/27/24 17:15 Pulse Oximetry 98 07/27/24 17:15 Oxygen Delivery Room Air 07/27/24 14:29 Medical Decision Making MDM Narrative Medical decision making narrative: 29-year-old female present to the emergency department for evaluation for headache. Patient states that her headache has improved with treatment. Patient is requesting discharge home. Differential Diagnosis Differential Diagnosis: headache, migraine, dehydration Vital Signs Vital Signs: Vital Signs Temperature 98.1 F 07/27/24 14:29 Pulse Rate 77 07/27/24 14:29 Respiratory Rate 18 07/27/24 14:29 Blood Pressure 131/81 07/27/24 14:29 Pulse Oximetry 99 07/27/24 14:29 Oxygen Delivery Room Air 07/27/24 14:29
[2024-07-27] MEDS: SODIUM CHLORIDE 0.9% IV 1,000 ML 999 ML IV CONT (15:58)
[2024-07-27] MEDS: KETOROLAC 15 MG/ML VIAL (*BKC) IV PUSH (15:59)
[2024-07-27] MEDS: diphenhydrAMINE HCl INJ 50 MG/ML VIAL 25 MG IV PUSH (15:59)
[2024-07-27] MEDS: PROCHLORPERAZINE EDISYLATE 10 MG/2 ML VIAL IV PUSH (15:59)
[2024-07-27 16:11] VITALS: BP 116/77; PULSE 73; RESP 14; O2SAT 98
[2024-07-27 17:15] VITALS: BP 120/77; PULSE 78; RESP 16; O2SAT 98
== END 2024-07-27 17:16 | disposition home or self-care (01) ==
LOC: ANHED 17:03
PROVIDERS: Emergency Provider Emergency Medicine; PCP Nurse Practitioner
DX: G43.909 Migraine, unspecified, not intractable, without status migrainosus (principal)
CPT/HCPCS: 96361; 96374; 96375; 99284; J0780; J1200; J1885; J7030